=== PATIENT | female | born 1970 | race Caucasian/White ===

== ENCOUNTER 2023-10-12 18:45 | Emergency (ER) | payer MEDICAID ==
[~2023-10-12] VITALS: Ht 162.6 cm; Wt 63.5 kg
[2023-10-12 18:54] VITALS: BP 169/89; PULSE 71; RESP 17; TEMP 98; O2SAT 97
== END 2023-10-12 19:05 | disposition left against medical advice (07) ==
LOC: MED 18:45
DX: L89.149 Pressure ulcer of left lower back, unspecified stage (principal); Z53.21 Procedure and treatment not carried out due to patient leaving prior to being seen by health care provider